=== PATIENT | male | born 1965 | race African-American/Black ===

== ENCOUNTER 2019-02-19 14:00 | Emergency (ER) | payer OTHER ==
[~2019-02-19] VITALS: Ht 180.3 cm; Wt 77.1 kg
[2019-02-19 15:23] LABS: Basophils # (auto) 0.1 uL; Basophils % (auto) 0.7 % (0.0-2.0); Eosinophils # (auto) 0.1 uL; Eosinophils % (auto) 1.3 % (0.0-7.0); Hematocrit 26.8 % (41.0-53.0); Hemoglobin 8.9 g/dL (13.5-17.5); Lymphocytes # (auto) 0.9 uL; Lymphocytes % (auto) 9.6 % (10.0-50.0); Mean Corpuscular Hemoglobin 28.5 pg (28.0-32.0); Mean Corpuscular Hgb Conc. 33.1 g/dL (32.0-36.0); Mean Corpuscular Volume 86.1 fL (80.0-100.0); Monocytes # (auto) 0.8 uL; Monocytes % (auto) 8.2 % (0.0-12.0); Neutrophils # (auto) 7.5 uL; Neutrophils % (auto) 80.2 % (37.0-80.0); Platelet Count (auto) 316 10^3/uL (140-450); Red Blood Cells 3.12 10^6/uL (4.5-5.90); Red Cell Distribution Width 16.1 % (11.8-14.3); White Blood Cell 9.4 10^3/uL (4.4-10.8)
[2019-02-19 15:36] LABS: Albumin 1.9 g/dL (3.4-5.0); Calcium 8.5 mg/dL (8.5-10.1); Potassium 4.4 mmol/L (3.5-5.1)
[2019-02-19 15:42] LABS: BUN/Creatinine Ratio 6.9; Bilirubin, Total 0.3 mg/dL (0.2-1.0); Total Protein 6.3 g/dL (6.4-8.2)
[2019-02-19 19:23] VITALS: BP 113/81
== END 2019-02-19 19:44 | disposition short-term general hospital (02) ==
LOC: EDBD 14:00 → ER 14:00
DX: E43 Unspecified severe protein-calorie malnutrition (principal); D64.9 Anemia, unspecified; I12.0 Hypertensive chronic kidney disease with stage 5 chronic kidney disease or end stage renal disease; N18.6 End stage renal disease; M25.512 Pain in left shoulder; Z99.2 Dependence on renal dialysis; Z68.23 Body mass index [BMI] 23.0-23.9, adult
CPT/HCPCS: 36415; 71045; 73030; 80053; 84484; 85025; 93005; 94761

== ENCOUNTER 2019-06-20 17:35 | Inpatient (IN) | payer OTHER, MEDICARE ==
[~2019-06-20] VITALS: Ht 182.9 cm; Wt 61.1 kg
[2019-06-20 18:28] LABS: Basophils # (auto) 0 uL; Eosinophils # (auto) 0.2 uL; Lymphocytes # (auto) 0.9 uL; Monocytes # (auto) 0.4 uL; Neutrophils # (auto) 2.3 uL; Red Blood Cells 2.74 10^6/uL (4.5-5.90); Red Cell Distribution Width 17.5 % (11.8-14.3)
[2019-06-20 18:30] LABS: Basophils % (auto) 0.8 % (0.0-2.0); Eosinophils % (auto) 4.5 % (0.0-7.0); Hematocrit 25.2 % (41.0-53.0); Hemoglobin 8.5 g/dL (13.5-17.5); Lymphocytes % (auto) 23.4 % (10.0-50.0); Mean Corpuscular Hemoglobin 30.9 pg (28.0-32.0); Mean Corpuscular Hgb Conc. 33.6 g/dL (32.0-36.0); Mean Corpuscular Volume 91.9 fL (80.0-100.0); Monocytes % (auto) 10.9 % (0.0-12.0); Neutrophils % (auto) 60.4 % (37.0-80.0); Platelet Count (auto) 215 10^3/uL (140-450); White Blood Cell 3.9 10^3/uL (4.4-10.8)
[2019-06-20] MEDS ORDERED: SODIUM CHLORIDE 0.9% 1,000 ML IV ONE (18:30)
[2019-06-20 18:35] LABS: Albumin 2.6 g/dL (3.4-5.0); BUN/Creatinine Ratio 4.4; Calcium 9.8 mg/dL (8.5-10.1)
[2019-06-20 18:39] LABS: Bilirubin, Total 0.5 mg/dL (0.2-1.0)
[2019-06-20 18:45] LABS: INR 1.09 (0.9-1.15); Partial Thromboplastin Time 33.3 sec (23.64-32.05)
[2019-06-20 18:46] LABS: Lactic Acid w/Reflex 2.1 mmol/L (0.4-2.0); Potassium 2.7 mmol/L (3.5-5.1)
[2019-06-20] MEDS: POTASSIUM CHL 20MEQ/100ML 100 ML IV SCH ×2 (19:15→21:15)
[2019-06-20] MEDS ORDERED: cefTRIAXone 1GM/50ML D5W 50 ML IV ONE (20:45)
[2019-06-20] MEDS ORDERED: POTASSIUM CHL 20 Meq TABLET PO ONE (22:30)
[2019-06-21] VITALS (76 sets, daily range): BP systolic 79–123; BP diastolic 49–89
[2019-06-21] MEDS ORDERED: ONDANSETRON HCL 4 MG/2 ML VIAL IV PRN (00:15)
[2019-06-21] MEDS ORDERED: ACETAMINOPHEN 500 MG TAB PO PRN (00:15)
[2019-06-21] MEDS ORDERED: TEMAZEPAM 15 MG CAP PO PRN (00:15)
[2019-06-21] MEDS ORDERED: ALBUMIN 25% 100 ML IV ONE (00:15)
--- NOTE | 2019-06-21 02:55 | NUR ---
Telemetry admit from JOB RACHEL admitted to Telemetry unit. Patient oriented to Kika Orona RN primary RN, unit, room, bed, and unit policies regarding patient care and visiting hours. Patient now on continuous telemetry monitoring, tele box #[id number] and telemetry reading on arrival to unit is ST, HR 110. No S/S of distress, SOB or pain. Ambulatory with mod assist. Patient placed on 2L oxygen via nasal cannula, weighed by bed scale and encouraged to call if they need something. All questions and concerns addressed, patient verbalized understanding. Bed in lowest locked position, side rails up x 2, call light within reach. Will continue to monitor every hour and as needed.
[2019-06-21] MEDS ORDERED: CINA30TA2 PO (04:05)
[2019-06-21] MEDS ORDERED: FAMO-12 PO (04:05)
[2019-06-21] MEDS ORDERED: HYDR-3682 PO (04:05)
[2019-06-21] MEDS ORDERED: AML5T PO (04:05)
[2019-06-21] MEDS ORDERED: METO-158 PO (04:05)
[2019-06-21] MEDS ORDERED: ASPI-404 PO (04:05)
[2019-06-21] MEDS ORDERED: FOLI1TAB6 PO (04:05)
[2019-06-21] MEDS ORDERED: FURO1TAB32 PO (04:05)
[2019-06-21] MEDS ORDERED: TICA90TA PO (04:05)
[2019-06-21] MEDS ORDERED: METH-562 PO (04:05)
[2019-06-21] MEDS ORDERED: IBUP200C3 PO (04:05)
[2019-06-21] MEDS ORDERED: SEVE800T8 PO (04:05)
[2019-06-21] MEDS ORDERED: DOCU-80 PO (04:05)
[2019-06-21] MEDS ORDERED: LEVE500T22 PO ×2 (04:05)
[2019-06-21] MEDS ORDERED: BISO5TAB44 PO (04:05)
[2019-06-21] MEDS ORDERED: LORA-655 PO (04:05)
--- NOTE | 2019-06-21 04:45 | NUR ---
Patient C/O SOB. Checked O2 saturation reading 100%. No acute S/S of distress noted. Paged respiratory to check on patient. After respiratory assessment, reported patient has good oxygen saturation, lung sounds are clear, no S/S of distress. Suggested q6hr breathing treatment. Will request order for breathing treatment and continue to monitor. Continue care.
--- NOTE | 2019-06-21 05:20 | NUR ---
Code assist called Patient experiencing SOB, stated,"I can't breathe." S/S of respiratory distress, patient began gasping for air and became unresponsive. Raghu RN with primary nurse at bedside, called code assist. Fabienne cotton RN, IRVIN Krishnamurthy, Ezio BRYAN, Latrell Tavarez, HEALTH SERVICES INFORMATION SPECIALIST, Luz Maria, RN, ICU structural draftsman, warehouse delivery manager and others responded at bedside. Code blue called, chest compressions initiated. supervisor white sugar report for documentation of code.
[2019-06-21] MEDS ORDERED: ETOMIDATE (2MG/ML) 20ML VIAL IV ONE ×2 (05:29→05:45)
[2019-06-21] MEDS ORDERED: SUCCINYLCHOLINE CHLORIDE 20 MG/ML 10ML VIAL IV ONE ×2 (05:29→05:45)
[2019-06-21] MEDS ORDERED: MIDAZOLAM DRIP 50 mg/50mL 50 ML IV ONE (05:45)
[2019-06-21] MEDS ORDERED: MIDAZOLAM HCL 1MG/1ML-2 ML VIAL IV ONE (05:45)
[2019-06-21] MEDS ORDERED: MIDAZOLAM HCL 1MG/1ML-2 ML VIAL ONE (05:45)
--- NOTE | 2019-06-21 05:49 | NUR ---
Endorsed care to Cristy BRYAN.
--- NOTE | 2019-06-21 05:50 | NUR ---
PATIENT BROUGHT INTO ROOM 105 PER BED. PLACED IN OUR BED AND HOOKED TO OUR BEDSIDE MONITOR. SINUS TACHYCARDIA 132. SBP STABLE. FOLLOWUP BLOOD SUGAR AFTER ONE AMP OF D50 ON TELE WAS 127. VERY THIN MALE. MEHRAN. + COUGH AND GAG. LUNGS COARSE. SUCTIONED FOR A MODERATE AMOUNT OF THICK DONNELLY SECRETIONS. ORALLY INTUBATED. ETT TO VENTILATOR. CLEAR ORAL SECRETIONS. ABDOMEN FLAT. INCONTINENT OF URINE IN HIS BOXERS. REMOVED THE BOXER SHORTS. ALL PULSES PALPABLE. TEMP IS NORMAL. HAD ONE 20 IN HIS RIGHT HAND. PLACED A 20 G IN THE LEFT FOREARM AND RIGHT FOREARM. ON A VERSED DRIP. VERSED 4MG IV GIVEN AND STARTED ON A DRIP. CURRENT VERSED DRIP RATE IS 6MG/HR.
[2019-06-21] MEDS: NOREPINEPHRINE 8 MG/250ML KIT 250 ML IV SCH ×2 (05:57→07:24)
[2019-06-21] MEDS: MIDAZOLAM DRIP 50 mg/50mL 50 ML IV SCH ×4 (05:57→22:03)
[2019-06-21] MEDS ORDERED: LORazepam 2MG/ML-1ML VIAL IV PRN (06:00)
[2019-06-21] MEDS: PANTOPRAZOLE 40 MG TAB PO SCH (06:00)
[2019-06-21] MEDS ORDERED: MORPHINE SULF INJ 2 MG/ML SYRINGE 1ML IV PRN (06:00)
[2019-06-21] MEDS ORDERED: EPINEPHrine HCL 1 MG/10 ML SYRG IV ONE (07:05)
[2019-06-21] MEDS: IPRATROPIUM BROM 0.5 MG/2.5ML INH SOL NEB SCH ×3 (07:11→18:17)
[2019-06-21] MEDS: ALBUTEROL SULF 2.5 MG/0.5ML(0.5%) NEB SOLN NEB SCH ×3 (07:11→18:17)
[2019-06-21 07:12] LABS: BUN/Creatinine Ratio 4.7; Calcium 10.2 mg/dL (8.5-10.1); Potassium 3.9 mmol/L (3.5-5.1)
--- NOTE | 2019-06-21 07:20 | NUR ---
SBP DROPPING. PATIENT WAS TRYING TO SIT UP. LEVOPHED STARTED SO THAT WE COULD INCREASE THE SEDATION.
--- NOTE | 2019-06-21 07:29 | NUR ---
Respiratory note: SPUTUM SAMPLE AND ABG OBTAINED AT THIS TIME.
--- NOTE | 2019-06-21 07:30 | NUR ---
PLACED A CALL TO ANATOLY, HIS . WAS SENT TO A MESSAGE CENTER. LEFT A MESSAGE TO CALL US HERE. SHE IS AWARE OF THE BED NUMBER HE IS IN. NO PASSWORD IS SET UP.
--- NOTE | 2019-06-21 07:40 | NUR ---
Respiratory note: DECREASED FI02 TO 60% IRVIN FUNES NOTIFIED
--- NOTE | 2019-06-21 07:50 | NUR ---
SPOKE TO ANATOLY , HIS . SET UP A PASSWORD. SHE IS AWARE OF THE BED NUMBER, HIS INTUBATION, THE ADDITION OF LEVOPHED AND VERSED.
--- NOTE | 2019-06-21 08:00 | NUR ---
OPEN RECEIVED REPORT FROM NIGHT RNIRWIN. ASSUMED CARE OF ICU PATIENT, FULL CODE STATUS. PATIENT SEDATED AND INTUBATED AT THIS TIME. SEE CURRENT VENT SETTINGS AND TRANSFUSION AIDE FOR FURTHER PATIENT INFORMATION. PATIENT NOW ON VERSED GTT AND LEVOPHED FOR BP SUPPORT. CONTINUE CARE. WILL CONTINUE TO TURN PATIENT Q2HRS AND PRN. OFF LOADING PRESSURE AREAS WITH PILLOWS.
--- NOTE | 2019-06-21 08:15 | NUR ---
Verde catheter insertion Patient assessed and determined to be in need of verde catheter PER PROTOCOL. Order obtained from . Verde catheter 16 guage Georgian inserted with clean sterile technique. Patient tolerated well.
[2019-06-21 08:27] LABS: Basophils # (auto) 0 uL; Basophils % (auto) 0.4 % (0.0-2.0); Eosinophils # (auto) 0.1 uL; Eosinophils % (auto) 1.1 % (0.0-7.0); Hematocrit 25.4 % (41.0-53.0); Hemoglobin 7.9 g/dL (13.5-17.5); Mean Corpuscular Hemoglobin 29.2 pg (28.0-32.0); Mean Corpuscular Hgb Conc. 31.2 g/dL (32.0-36.0); Mean Corpuscular Volume 93.5 fL (80.0-100.0); Monocytes # (auto) 0.9 uL; Monocytes % (auto) 7.8 % (0.0-12.0); Neutrophils # (auto) 9.5 uL; Neutrophils % (auto) 81.7 % (37.0-80.0); Nucleated Red Blood Cells % 0.1 %; Platelet Count (auto) 191 10^3/uL (140-450); Red Blood Cells 2.72 10^6/uL (4.5-5.90); Red Cell Distribution Width 17.4 % (11.8-14.3); White Blood Cell 11.6 10^3/uL (4.4-10.8)
[2019-06-21] MEDS: FAMOTIDINE (10MG/ML) 2ML VL IV SCH (09:30)
[2019-06-21] MEDS: DOCUSATE SOD 100 MG CAP PO SCH ×2 (09:31→22:03)
[2019-06-21] MEDS: HEPARIN SODIUM (PORCINE) 5000 UNITS/ML 1ML VIAL SC SCH ×2 (09:31→22:04)
--- NOTE | 2019-06-21 09:35 | NUR ---
Respiratory note: DECREASED FI02 TO 45% IRVIN FUNES NOTIFIED
[2019-06-21] MEDS ORDERED: PIPERACILLIN-TAZOB 2.25GM 0.75 GM in D5W 5% 50 ML IV SCH (10:45)
[2019-06-21] MEDS ORDERED: VANCOMYCIN PER PHARMACY 0 MG IV SCH (10:45)
--- NOTE | 2019-06-21 11:00 | NUR ---
DR. OLSON AT BEDSIDE: ORDERS MD UPDATED ON PT'S STATUS, LABS AND POC FOR TODAY. ORDERS GIVEN AND TO BE CARRIED OUT. CURRENT TEMP 100.[address] ORAL[address] MEASURES IN PL[address]. ICE BAG PLACED NEXT TO PATIENT. CONTINUE CARE.
[2019-06-21 11:34] LABS: Basophils # (auto) 0 uL; Basophils % (auto) 0.4 % (0.0-2.0); Eosinophils # (auto) 0.2 uL; Eosinophils % (auto) 2.2 % (0.0-7.0); Hematocrit 27.5 % (41.0-53.0); Hemoglobin 8.8 g/dL (13.5-17.5); Lymphocytes # (auto) 1.2 uL; Lymphocytes % (auto) 14.2 % (10.0-50.0); Mean Corpuscular Hemoglobin 30.3 pg (28.0-32.0); Mean Corpuscular Hgb Conc. 31.8 g/dL (32.0-36.0); Mean Corpuscular Volume 95.1 fL (80.0-100.0); Monocytes # (auto) 0.7 uL; Monocytes % (auto) 8.3 % (0.0-12.0); Neutrophils # (auto) 6.1 uL; Neutrophils % (auto) 74.9 % (37.0-80.0); Nucleated Red Blood Cells % 0.1 %; Platelet Count (auto) 232 10^3/uL (140-450); Red Blood Cells 2.89 10^6/uL (4.5-5.90); Red Cell Distribution Width 17.8 % (11.8-14.3); White Blood Cell 8.1 10^3/uL (4.4-10.8)
[2019-06-21 11:57] LABS: Albumin 2.9 g/dL (3.4-5.0); Calcium 10.5 mg/dL (8.5-10.1); Potassium 3.6 mmol/L (3.5-5.1)
[2019-06-21 12:00] LABS: BUN/Creatinine Ratio 5.1; Bilirubin, Total 0.5 mg/dL (0.2-1.0); Total Protein 7.2 g/dL (6.4-8.2)
[2019-06-21 12:03] LABS: % Iron Saturation 21.7 % (20-55)
[2019-06-21] MEDS ORDERED: VANCOMYCIN 1GM/250ML 250 ML IV ONE (13:00)
--- NOTE | 2019-06-21 13:00 | NUR ---
DR. LEDESMA AT BEDSIDE: ORDERS MD UPDATED ON PT'S STATUS, LABS AND POC. PENDING HD DUE FOR TOMORROW PER MD. ALSO GIVEN ORDERS FOR FLUID CHALLENGE FOR PATIENT. BOLUS TO BE GIVEN. WILL CONTINUE CARE. SEE EMAR FOR TIME GIVEN.
[2019-06-21] MEDS ORDERED: SODIUM CHLORIDE 0.9% 500 ML IV ONE (13:15)
--- NOTE | 2019-06-21 13:35 | NUR ---
[facility] CALLED: UPDATE UPDATED BIJU FROM [facility] ON PT'S CURRENT VS AND STATUS AT THIS TIME. COKER TO CHECK BACK LATER. CONTINUE CARE.
[2019-06-21] MEDS ORDERED: PIPERACILLIN-TAZOB 2.25GM 50 ML IV SCH ×2 (14:30)
--- NOTE | 2019-06-21 15:15 | NUR ---
ASSESS- PT. LYING IN BED ON VENT SIZE # 8.0 ET, 24 AT THE LIP, AC-14, TV-450, PEEP-5, FIO2- 35%. LUNGS COARSE WINSTON. INSPIRATORY AND EXPIRATORY WITH RHONCHI WINSTON. INSPIRATORY AND EXPIRATORY. PT. HAS GAG/COUGH REFLEX. OPENS EYES SPONTANEOUSLY AT TIMES, NO TRACKING. DOES NOT FOLLOW ANY COMMANDS. ON VERSED GTT. AT 15 MG./HR. LEVOPHED GTT. AT 5 MCG. SBP 90'S-100'S. ABD. SOFT, FLAT. BOWEL SOUNDS ALL FOUR QUADRANTS. F/C TO GRAVITY WITH CLEAR YELLOW URINE. SACRUM RED, BLANCHABLE. RADIAL PULSES STRONG, PALPABLE WINSTON. DORSALIS PEDAL PULSES STRONG, PALPABLE WINSTON. NO EDEMA.
[2019-06-21] MEDS: PIPERACILLIN-TAZOB 2.25GM 50 ML IV SCH ×2 (15:43→22:53)
--- NOTE | 2019-06-21 15:45 | NUR ---
ATTEMPTED TO PLACE OGT TIMES 2, COILED IN PT'S. MOUTH. TRIED TO PLACE NGT IN LT. NARE TIMES 2 AND COILED IN MOUTH.
--- NOTE | 2019-06-21 16:55 | NUR ---
CALLED AND GAVE UPDATE ON PT. CONSENTED FOR IV CONTRAST FOR CT ANGIO CHEST TO R/O PE, IRVIN THOMPSON WITNESSED OVER PHONE WITH ME.
--- NOTE | 2019-06-21 17:50 | NUR ---
Oral gastric tube insertion 14FR. OGT inserted per MD order. Placement verified by aspiration of stomach contents, auscultation.
--- NOTE | 2019-06-21 19:32 | NUR ---
INITIAL CONTACT ASSUMED CARE OF PATIENT PATIENT APPEARS TO BE RESTING IN BED COMFORTABLY INTUBATED AND SEDATED AT THIS TIME. VITALS SIGNS SHOW PATIENT IS IN ATRIAL FLUTTER WITH PVC'S. NO S/S OF DISTRESS NOTED, NO FACIAL GRIMACE. NOTED BAILEY CATH TO LEFT CHEST, 20 G IV LEFT FOREARM, 20 G IV RIGHT FOREARM, 20 G IV RIGHT WRIST. IV'S ARE PATENT, INTACT AND ASYMPTOMATIC AT THIS TIME. IV FLUIDS ARE LEVOPHED AND VERSED. SEE IV SPREADSHEET FOR TITRATIONS. SUCTION AND MOUTH CARE GIVEN. PATIENT ADJUSTED IN BED FOR COMFORT, OGT CLAMPED. ZAMARRIPA CATHETER INTACT, IN PLACE AND DRAINING TO GRAVITY. VENTILATOR PLUGGED INTO RED OUTLET, AMBU BAG AT BEDSIDE. BED IN LOWEST LOCKED POSITION, SIDE RAILS UP TIMES TWO. PATIENT IS IN FULL VIEW OF NURSES STATION. SAFETY MAINTAINED, WILL CONTINUE TO MONITOR.
--- NOTE | 2019-06-21 19:44 | NUR ---
Patient bathe/linen change Patient given complete bath. Skin integrity assessed for any changes. Linens changed. Patient repositioned for comfort. Hair shampooed. Lotion on legs and feet, gown changed, bed pads changed. Patient tolerated well
--- NOTE | 2019-06-21 20:30 | NUR ---
RECEIVED CALL FROM SISTER ASHLI PASS WORD WAS VERIFIED. ASHLI UPDATED ON PATIENT'S PLAN OF CARE. PER ASHLI, SPOUSE ANATOLY IS UNABLE TO TAKE CARE OF PATIENT DUE TO NEW JOB [place]. ASHLI IS REQUESTING A DOBBY LOOM CHAIN PEGGER CONSULT TO LOOK INTO STENCILING MACHINE TENDER CARE FACILITIES FOR PATIENT. ALL QUESTIONS AND CONCERNS WERE ADDRESSED AT THIS TIME
--- NOTE | 2019-06-21 22:49 | NUR ---
ROUNDING PATIENT RESPIRATIONS SHOW IN THE 30'S AND 40'S PER THE MONITOR MANUAL RESPIRATIONS DONE PATIENT RESPIRATIONS ARE 20/MIN
[2019-06-22] VITALS (96 sets, daily range): BP systolic 87–123; BP diastolic 57–90
[2019-06-22] MEDS: ALBUTEROL SULF 2.5 MG/0.5ML(0.5%) NEB SOLN NEB SCH ×4 (00:17→18:37)
[2019-06-22] MEDS: IPRATROPIUM BROM 0.5 MG/2.5ML INH SOL NEB SCH ×4 (00:17→18:36)
[2019-06-22] MEDS: MIDAZOLAM DRIP 50 mg/50mL 50 ML IV SCH ×5 (02:25→17:46)
--- NOTE | 2019-06-22 04:00 | NUR ---
RT AT BEDSIDE
[2019-06-22 04:25] LABS: Basophils # (auto) 0 uL; Basophils % (auto) 0.8 % (0.0-2.0); Eosinophils # (auto) 0.2 uL; Eosinophils % (auto) 2.7 % (0.0-7.0); Hematocrit 23.7 % (41.0-53.0); Hemoglobin 7.7 g/dL (13.5-17.5); Lymphocytes # (auto) 0.9 uL; Lymphocytes % (auto) 14.7 % (10.0-50.0); Mean Corpuscular Hgb Conc. 32.7 g/dL (32.0-36.0); Mean Corpuscular Volume 94.8 fL (80.0-100.0); Monocytes # (auto) 0.5 uL; Monocytes % (auto) 8.6 % (0.0-12.0); Neutrophils # (auto) 4.2 uL; Neutrophils % (auto) 73.2 % (37.0-80.0); Nucleated Red Blood Cells % 0.1 %; Platelet Count (auto) 200 10^3/uL (140-450); White Blood Cell 5.8 10^3/uL (4.4-10.8)
[2019-06-22 05:08] LABS: Albumin 2.4 g/dL (3.4-5.0); Calcium 10.2 mg/dL (8.5-10.1); Potassium 3.8 mmol/L (3.5-5.1)
[2019-06-22 05:11] LABS: Bilirubin, Total 0.5 mg/dL (0.2-1.0); Total Protein 6.3 g/dL (6.4-8.2)
[2019-06-22] MEDS: NOREPINEPHRINE 8 MG/250ML KIT 250 ML IV SCH (05:52)
--- NOTE | 2019-06-22 06:00 | NUR ---
CANISTERS AND TUBING CHANGED
[2019-06-22] MEDS: PANTOPRAZOLE 40 MG TAB PO SCH (06:53)
[2019-06-22] MEDS: PIPERACILLIN-TAZOB 2.25GM 50 ML IV SCH ×2 (06:53→13:46)
--- NOTE | 2019-06-22 07:04 | NUR ---
CARE ENDORSED TO IRVIN CHRISTIANSON ALL QUESTIONS AND CONCERNS WERE ADDRESSED
--- NOTE | 2019-06-22 08:30 | NUR ---
WOUND CARE NOTE: Added patient to wound care monitoring list due to low Sanjeev score of 13 and intubation status, putting patient to high risk for skin breakdown. Patient is 54 y/o male with admitting diagnosis of Fluid Overload. Patient with history of Anemia, ESRD,High Lipids, Htn. Patient is resting in ICU bed in Rm. 105. Patient is intubated and mechanically ventilated. Patient appears to be in no pain using Carl Herrera Faces Pain Scale. IRVIN Max at bedside and have just repositioned patient, reports of no skin issue noted ; will do full skin assessment on next repositioning schedule. RECOMMENDATIONS: BID/PRN cleaning cleaning and application of Barrier cream to sacral/buttocks as preventative per MD order,frequent turning and repositioning schedule as condition permits, redistribute pressure points with pillows, elevate heels on pillows, continue monitoring by wound care while patient is mechanically ventilated. Addendum: 06/22/19 at 1725 by Padmaja Vaca RN [id number] Wound care came back for skin assessment, Patient is having dialysis, will try to see patient at later time.
--- NOTE | 2019-06-22 09:04 | NUR ---
DIALYSIS NURSE AT BEDSIDE
[2019-06-22] MEDS: FAMOTIDINE (10MG/ML) 2ML VL IV SCH (09:11)
[2019-06-22] MEDS: HEPARIN SODIUM (PORCINE) 5000 UNITS/ML 1ML VIAL SC SCH (09:15)
[2019-06-22] MEDS: DOCUSATE SOD 100 MG CAP PO SCH (09:16)
--- NOTE | 2019-06-22 09:45 | NUR ---
I spoke with Dr. Paulino regarding the plan of care for this patient-she said patient is stable for transfer and will place the order.
--- NOTE | 2019-06-22 10:10 | NUR ---
DR. OLSON AT BEDSIDE
--- NOTE | 2019-06-22 12:39 | NUR ---
DIALYSIS COMPLETE 1 LITER REMOVED. PATIENT TOLERATED WELL
--- NOTE | 2019-06-22 14:43 | NUR ---
[facility] TRANSF[facility] PATIENT GOING TO [facility] BED 234, REPORT PHONE NUMBER [phone] ACCEPTING DOCTOR Jonathan CAM
--- NOTE | 2019-06-22 14:47 | NUR ---
CALLED TO UPDATED ON PATIENT TRANSFER TO [facility] AWAITING CALLBACK
[2019-06-22] MEDS ORDERED: VANCOMYCIN 1GM/250ML 250 ML IV ONE (16:00)
--- NOTE | 2019-06-22 16:17 | NUR ---
DR. LEDESMA AT BEDSIDE
--- NOTE | 2019-06-22 16:17 | NUR ---
DR. OSPINA AT BEDSIDE
--- NOTE | 2019-06-22 19:20 | NUR ---
REPORT GIVEN TO ELIAN BRYAN TO ASSUME CARE
--- NOTE | 2019-06-22 19:30 | NUR ---
INITIAL CONTACT ASSUMED CARE OF PATIENT PATIENT APPEARS TO BE RESTING IN BED COMFORTABLY INTUBATED AND SEDATED AT THIS TIME. VITALS SIGNS SHOW PATIENT IS IN ATRIAL FLUTTER WITH PVC'S. NO S/S OF DISTRESS NOTED, NO FACIAL GRIMACE. NOTED BAILEY CATH TO LEFT CHEST, 20 G IV LEFT FOREARM, 20 G IV RIGHT FOREARM, 210 G IV RIGHT WRIST. IV'S ARE PATENT, INTACT AND ASYMPTOMATIC AT THIS TIME. IV FLUIDS ARE LEVOPHED AND VERSED. SEE IV SPREADSHEET FOR TITRATIONS. SUCTION AND MOUTH CARE GIVEN. PATIENT ADJUSTED IN BED FOR COMFORT, OGT CLAMPED. ZAMARRIPA CATHETER INTACT, IN PLACE AND DRAINING TO GRAVITY. VENTILATOR PLUGGED INTO RED OUTLET, AMBU BAG AT BEDSIDE. BED IN LOWEST LOCKED POSITION, SIDE RAILS UP TIMES TWO. PATIENT IS IN FULL VIEW OF NURSES STATION. SAFETY MAINTAINED, WILL CONTINUE TO MONITOR.
--- NOTE | 2019-06-22 21:50 | NUR ---
[facility] ARRIVED ON THE ICU UNIT PER REPORT GIVEN [facility] IS SCHEDULED TO ARRIVE AT 0200 NEIDA SANCHEZ, IRVIN STATED THAT [facility] DISPATCHED TRANSPORT TEAM FOR A 2200 DIRECTOR OF INFECTION CONTROL
--- NOTE | 2019-06-22 21:55 | NUR ---
CALL PLACED TO PATIENT'S SPOUSE CALL WENT TO VOICE MAIL
--- NOTE | 2019-06-22 21:56 | NUR ---
CALL PLACED TO ASHLI PATIENT'S SISTER ASHLI WAS CALLED, PASS WORD VERIFIED. ASHLI WAS GIVEN COK[facility] LOCATION, ROOM NUMBER AND TEL NUMBER. ALL QUESTIONS AND CONCERNS WERE ANSWERED
--- NOTE | 2019-06-22 22:15 | NUR ---
MEDICATIONS GIVEN HEPARIN 5000 GIVEN SUBQ COLACE 100 MG
--- NOTE | 2019-06-22 22:38 | NUR ---
Pt being trans to another hosp Order obtained for transfer of JOB GOLDBERG to [facility]. Report called/given to IRVIN IVY. Report given to EMS transport team/NEIDA SANCHEZ RN. Medication reconciliation form completed and copy given to patient. Transported via [facility] along with copied chart and imaging films/disk and all personal belongings. No distress noted on time of departure. Family (SISTER ASHLI WAS CALLED [phone]/SPOUSE WAS CALLED BUT DID NOT ANSWER) notified of destination and room number, verbalized understanding.
--- NOTE | 2019-06-22 23:30 | NUR ---
RT AT BEDSIDE Addendum: 06/22/19 at 2331 by Eloise Murphy RN INCORRECT DATE, DATE SHOULD BE 06/21/19
== END 2019-06-22 22:37 | disposition short-term general hospital (02) | DRG 871 ==
LOC: ER 17:35 → EDBD 17:35 → TELE 17:36 → TELE-WESTW 06-21 02:43 → ICU WEST 06-21 05:51
PROVIDERS: ADMIT Nurse Practitioner Family; ATTEND Internal Medicine Nephrology
PROC: 5A1945Z Respiratory Ventilation, 24-96 Consecutive Hours (ICD-10-PCS; principal; 2019-06-21)
PROC: 0BH17EZ Insertion of Endotracheal Airway into Trachea, Via Natural or Artificial Opening (ICD-10-PCS; 2019-06-21)
PROC: 5A12012 Performance of Cardiac Output, Single, Manual (ICD-10-PCS; 2019-06-21)
PROC: 5A1D70Z Performance of Urinary Filtration, Intermittent, Less than 6 Hours Per Day (ICD-10-PCS; 2019-06-22)
DX: A41.9 Sepsis, unspecified organism (principal); I50.43 Acute on chronic combined systolic (congestive) and diastolic (congestive) heart failure; J18.9 Pneumonia, unspecified organism; J96.01 Acute respiratory failure with hypoxia; N18.6 End stage renal disease; E43 Unspecified severe protein-calorie malnutrition; J98.11 Atelectasis; Z68.1 Body mass index [BMI] 19.9 or less, adult; I13.2 Hypertensive heart and chronic kidney disease with heart failure and with stage 5 chronic kidney disease, or end stage renal disease; E87.6 Hypokalemia; E78.5 Hyperlipidemia, unspecified; I07.1 Rheumatic tricuspid insufficiency; I25.10 Atherosclerotic heart disease of native coronary artery without angina pectoris; F41.9 Anxiety disorder, unspecified; I35.0 Nonrheumatic aortic (valve) stenosis; I27.20 Pulmonary hypertension, unspecified; Z79.02 Long term (current) use of antithrombotics/antiplatelets; Z82.49 Family history of ischemic heart disease and other diseases of the circulatory system; Z83.3 Family history of diabetes mellitus; Z87.891 Personal history of nicotine dependence; Z95.5 Presence of coronary angioplasty implant and graft; Z99.2 Dependence on renal dialysis; Z79.899 Other long term (current) drug therapy
CPT/HCPCS: 36415; 36600; 70450; 71045; 80048; 80053; 80202; 82805; 82962; 83540; 83550; 83605; 83735; 83880; 84484; 85025; 85610; 85730; 86850; 86900; 86901; 87040; 87070; 87081; 87205; 92950; 93005; 93306; 94002; 94003; 94640; G0378; J0330; J0696; J1642; J2250; J2543; J3480; J3490; P9047